=== PATIENT | female | born 1990 | race Hispanic/Latino ===

== ENCOUNTER 2018-08-20 18:51 | Emergency (ER) | payer SELFPAY ==
[2018-08-20 19:56] LABS: Absolute Lymphocytes (CBC) 4.4 K/uL (0.7-4.9); Absolute Monocytes 0.5 K/uL (0.1-1.3); Absolute Neutrophil 5.9 K/uL (1.8-8.0); Basophils % 0.7 % (0-1.3); Eosinophils % 2.6 % (0-4.4); Hematocrit 40.7 % (36.0-45.0); MPV 8.2 fL (7.6-11.3); Monocytes % 4.8 % (3.3-12.3); RBC Red Blood Cell Count 4.63 M/uL (3.86-4.86)
--- NOTE | 2018-08-20 20:10 | RAD REPORT ---
EXAM DESCRIPTION: RAD - Chest Single View - 08/20/2018 7:23 pm CLINICAL HISTORY: CHEST PAIN Chest pain. COMPARISON: No comparisons FINDINGS: Portable technique limits examination quality. The lungs are grossly clear. The heart is normal in size. No displaced fractures. IMPRESSION: No acute intrathoracic process suspected.
[2018-08-20 20:23] LABS: BUN Blood Urea Nitrogen 17 mg/dL (7-18); Bicarbonate 28 mmol/L (21-32); Glucose Level 101 mg/dL (74-106); Potassium 3.4 mmol/L (3.5-5.1); Sodium Level 141 mmol/L (136-145); Troponin (Emerg Dept Use Only) < 0.02 ng/mL (0.0-0.045)
[2018-08-20 20:53] LABS: Urine Blood NEGATIVE (NEG); Urine Glucose NEGATIVE (NEG); Urine Protein NEGATIVE (NEG); Urine Specific Gravity >1.030 (1.005-1.030); Urine pH 5.5 (5.0-7.0)
--- NOTE | 2018-08-20 22:07 | EDPHYS ---
Physician Documentation [facility] Name: Kaycee Griffni Age: 28 yrs Sex: Female : 1990 Arrival Date: 08/20/2018 Time: 18:52 Bed 7 Private MD: None, None ED Physician Michael Gr HPI: 08/20 21:43 This 28 yrs old Female presents to ER via Ambulatory with complaints of Chest pm1 Pain, Shortness Of Breath. 21:43 The patient or guardian reports chest pain that is located primarily in the mid-sternal pm1 area. The pain does not radiate. Associated signs and symptoms: Pertinent positives: shortness of breath, Pertinent negatives: abdominal pain, cough, dizziness, headache, nausea, palpitations, vomiting. The chest pain is described as sharp. Duration: The patient or guardian reports multiple episodes, that have now resolved. Modifying factors: The symptoms are alleviated by nothing. the symptoms are aggravated by nothing. Severity of pain: in the emergency department the pain is actually worse. The patient has not experienced similar symptoms in the past. The patient has not recently seen a physician. 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 - Social history:: Smoking status: Patient uses tobacco products, smokes one-half pack cigarettes per day. - Ebola Screening: : No symptoms or risks identified at this time. ROS: 21:46 Constitutional: Negative for fever, chills, and weight loss, Eyes: Negative for injury, pm1 pain, redness, and discharge, ENT: Negative for injury, pain, and discharge, Neck: Negative for injury, pain, and swelling. 21:46 Abdomen/GI: Negative for abdominal pain, nausea, vomiting, diarrhea, and constipation, Back: Negative for injury and pain, : Negative for injury, bleeding, discharge, and swelling, MS/Extremity: Negative for injury and deformity, Skin: Negative for injury, rash, and discoloration, Neuro: Negative for headache, weakness, numbness, tingling, and seizure. 21:46 Cardiovascular: Positive for chest pain, Negative for edema, orthopnea, palpitations. 21:46 Respiratory: Positive for shortness of breath, Negative for cough, dyspnea on exertion, sputum production, wheezing. Exam: 21:46 Constitutional: This is a well developed, well nourished patient who is awake, alert, pm1 and in no acute distress. Head/Face: Normocephalic, atraumatic. Eyes: Pupils equal round and reactive to light, extra-ocular motions intact. Lids and lashes normal. Conjunctiva and sclera are non-icteric and not injected. Cornea within normal limits. Periorbital areas with no swelling, redness, or edema. ENT: Nares patent. No nasal discharge, no septal abnormalities noted. Tympanic membranes are normal and external auditory canals are clear. Oropharynx with no redness, swelling, or masses, exudates, or evidence of obstruction, uvula midline. Mucous membranes moist. Neck: Trachea midline, no thyromegaly or masses palpated, and no cervical lymphadenopathy. Supple, full range of motion without nuchal rigidity, or vertebral point tenderness. No Meningismus. 21:46 Cardiovascular: Regular rate and rhythm with a normal S1 and S2. No gallops, murmurs, or rubs. Normal PMI, no JVD. No pulse deficits. Respiratory: Lungs have equal breath sounds bilaterally, clear to auscultation and percussion. No rales, rhonchi or wheezes noted. No increased work of breathing, no retractions or nasal flaring. Abdomen/GI: Soft, non-tender, with normal bowel sounds. No distension or tympany. No guarding or rebound. No evidence of tenderness throughout. Back: No spinal tenderness. No costovertebral tenderness. Full range of motion. Skin: Warm, dry with normal turgor. Normal color with no rashes, no lesions, and no evidence of cellulitis. MS/ Extremity: Pulses equal, no cyanosis. Neurovascular intact. Full, normal range of motion. 21:46 Chest/axilla: Inspection: normal, Palpation: crepitus, is not appreciated, tenderness, of the mid-sternal area, that totally reproduces the patient's complaints. 21:46 Neuro: Orientation: is normal, Motor: moves all fours, Gait: is steady, at a normal pace, without difficulty. Vital Signs: 19:02 BP 143 / 80; Pulse 105; Resp 16; Temp 98.2; Pulse Ox 99% ; Pain 5/10; hb 20:00 BP 129 / 83; Pulse 86; Resp 22; Pulse Ox 100% on R/A; lp1 21:00 BP 114 / 81; Pulse 92; Resp 18; Pulse Ox 100% on R/A; lp1 22:00 BP 129 / 74; Pulse 90; Resp 17; Pulse Ox 99% on R/A; Pain 0/10; lp1 MDM: 19:05 Patient medically screened. pm1 21:46 Data reviewed: vital signs. pm1 22:04 ED course: [facility] report: CT chest negative for PE, dissection. No acute intrathoracic pm1 abnormality. 22:04 Data interpreted: Pulse oximetry: on room air is 100 %. Interpretation: normal. pm1 Counseling: I had a detailed discussion with the patient and/or guardian regarding: the historical points, exam findings, and any diagnostic results supporting the discharge/admit diagnosis, lab results, radiology results, the need for outpatient follow up, to return to the emergency department if symptoms worsen or persist or if there are any questions or concerns that arise at home. 08/20 19:06 Order name: Basic Metabolic Panel; Complete Time: 21:01 pm1 08/20 19:06 Order name: CBC with Diff; Complete Time: 20:18 pm08/20 19:06 Order name: Magnesium; Complete Time: 21: pm1 08/20 19:06 Order name: Troponin (emerg Dept Use Only); Complete Time: 21:01 pm1 08/20 20:04 Order name: Urine Dipstick--Ancillary (enter results); Complete Time: 21:01 oe 08/20 20:05 Order name: Urine --Ancillary (enter results); Complete Time: 21:01 oe 08/20 19:06 Order name: XRAY Chest (1 view); Complete Time: 20:18 pm1 08/20 19:06 Order name: EKG; Complete Time: 19:07 pm08/20 19:06 Order name: Cardiac monitoring; Complete Time: 19:38 pm1 08/20 19:06 Order name: EKG - Nurse/Tech; Complete Time: 19:38 pm1 08/20 19:06 Order name: IV Saline Lock; Complete Time: 19:48 pm1 08/20 19:06 Order name: Labs collected and sent; Complete Time: 19:48 pm1 08/20 19:06 Order name: O2 Per Protocol; Complete Time: 19:49 pm1 08/20 21:05 Order name: CT Chest For PE Angio pm1 08/20 19:06 Order name: O2 Sat Monitoring; Complete Time: 19:49 pm1 08/20 19:06 Order name: Urine Dipstick-Ancillary (obtain specimen); Complete Time: 20:11 pm1 08/20 19:06 Order name: Urine Test (obtain specimen); Complete Time: 20:11 pm1 Administered Medications: No medications were administered Disposition: 08/20/18 22:06 Discharged to Home. Impression: Chest pain, unspecified. - Condition is Stable. - Discharge Instructions: Nonspecific Chest Pain. - Medication Reconciliation Form, Thank You Letter, Antibiotic Education, Prescription Opioid Use form. - Follow up: Emergency Department; When: As needed; Reason: Worsening of condition. Follow up: Private Physician; When: 2 - 3 days; Reason: Recheck today's complaints, Continuance of care, Re-evaluation by your physician. - Problem is new. - Symptoms have improved. Signatures: Dispatcher [employer] EDMS Kacey Borden RN RN lp1 Darvin Morris NP PROGRAM MANUFACTURING LEADER pm1 Ruth Mendoza RN RN Corrections: (The following items were deleted from the chart) 22:28 22:06 08/20/2018 22:06 Discharged to Home. Impression: Chest pain, unspecified. lp1 Condition is Stable. Forms are Medication Reconciliation Form, Thank You Letter, Antibiotic Education, Prescription Opioid Use. Follow up: Emergency Department; When: As needed; Reason: Worsening of condition. Follow up: Private Physician; When: 2 - 3 days; Reason: Recheck today's complaints, Continuance of care, Re-evaluation by your physician. Problem is new. Symptoms have improved. pm1
--- NOTE | 2018-08-20 22:07 | ER ---
Nurse's Notes [facility] Name: Kaycee Griffin Age: 28 yrs Sex: Female : 1990 Arrival Date: 08/20/2018 Time: 18:52 Bed 7 Private MD: None, None Diagnosis: Chest pain, unspecified Presentation: 08/20 19:00 Presenting complaint: SOB and intermittent sharp substernal chest pain that started 3 hb days ago. Denies fever/cough. Transition of care: patient was not received from another setting of care. Onset of symptoms was August 17, 2018. Risk Assessment: Do you want to hurt yourself or someone else? Patient reports no desire to harm self or others. Care prior to arrival: None. 19:00 Method Of Arrival: Ambulatory hb 19:00 Acuity: MALLORIE 3 hb 20:03 Initial Sepsis Screen: Does the patient meet any 2 criteria? No. Patient's initial lp1 sepsis screen is negative. Does the patient have a suspected source of infection? No. Patient's initial sepsis screen is negative. 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 - Social history:: Smoking status: Patient uses tobacco products, smokes one-half pack cigarettes per day. - Ebola Screening: : No symptoms or risks identified at this time. Screenin:02 Abuse screen: Denies threats or abuse. Denies injuries from another. Nutritional lp1 screening: No deficits noted. Tuberculosis screening: No symptoms or risk factors identified. Fall Risk None identified. Assessment: 19:45 General: Appears in no apparent distress. Behavior is appropriate for age. Pain: lp1 Complains of pain in chest Pain does not radiate. Pain began 2-3 days ago. Neuro: Level of Consciousness is awake, alert, obeys commands, Oriented to person, place, time, situation. Cardiovascular: Patient's skin is warm and dry. Respiratory: Reports shortness of breath during chest pain Airway is patent Respiratory effort is even, unlabored, Respiratory pattern is regular, Breath sounds are clear bilaterally. GI: No signs and/or symptoms were reported involving the gastrointestinal system. : No signs and/or symptoms were reported regarding the genitourinary system. EENT: No signs and/or symptoms were reported regarding the EENT system. Derm: Skin is pink, warm \T\ dry. Musculoskeletal: Circulation, motion, and sensation intact. 22:10 Reassessment: Patient and/or family updated on plan of care and expected duration. Pain lp1 level reassessed. Patient is alert, oriented x 3, equal unlabored respirations, skin warm/dry/pink. Patient denies pain at this time. Patient states feeling better. Patient states symptoms have improved. Vital Signs: 19:02 BP 143 / 80; Pulse 105; Resp 16; Temp 98.2; Pulse Ox 99% ; Pain 5/10; hb 20:00 BP 129 / 83; Pulse 86; Resp 22; Pulse Ox 100% on R/A; lp1 21:00 BP 114 / 81; Pulse 92; Resp 18; Pulse Ox 100% on R/A; lp1 22:00 BP 129 / 74; Pulse 90; Resp 17; Pulse Ox 99% on R/A; Pain 0/10; lp1 ED Course: 18:52 Patient arrived in ED. sb2 18:52 None, None is Private Physician. sb2 19:02 Triage completed. hb 19:02 Arm band placed on right wrist. hb 19:05 Darvin Morris NP is PHCP. pm1 19:05 Michael Gr MD is Attending Physician. pm1 19:20 X-ray completed. Portable x-ray completed in exam room. Patient tolerated procedure az well. 19:22 XRAY Chest (1 view) In Process Unspecified. EDMS 19:26 Kacey Borden, GUME is Primary Nurse. lp1 19:49 Inserted saline lock: 20 gauge in right antecubital area, using aseptic technique. oe Blood collected. 20:02 Patient has correct armband on for positive identification. Placed in gown. Bed in low lp1 position. Call light in reach. nuclear monitoring technician on. Pulse ox on. NIBP on. 20:03 Patient maintains SpO2 saturation greater than 95% on room air. lp1 21:[address] nj 21:43 CT Chest For PE Angio In Process Unspecified. EDMS 22:18 No provider procedures requiring assistance completed. IV discontinued, No lp1 redness/swelling at site. Pressure dressing applied. Administered Medications: No medications were administered Outcome: 22:06 Discharge ordered by . pm1 22:19 Discharged to home ambulatory, with significant other. lp1 22:19 Condition: good 22:19 Discharge instructions given to patient, Instructed on discharge instructions, follow up and referral plans. Demonstrated understanding of instructions, follow-up care. 22:20 Patient left the ED. lp1 Signatures: Dispatcher [employer] EDKacey Chandler RN RN lp1 Darvin Morris, SYSTEM SALES CONSULTANT SYSTEM SALES CONSULTANT pm1 Ruth Mendoza, GUME RN Nagi Valderrama Orlando oe Lynn Pfeiffer sbAnalia Verduzco Corrections: (The following items were deleted from the chart) 20:12 19:49 Inserted saline lock: 22 gauge in right antecubital area, using aseptic oe technique. Blood collected. oe 22:29 22:28 Patient left the ED. lp1 lp1
--- NOTE | 2018-08-21 09:50 | EKG ---
Test Date: 2018-08-20 Test Time: 19:32:41 Brim Cutter: MELLO MEASUREMENT RESULTS: Intervals: Rate: 93 MO: 134 QRSD: 74 QT: 350 QTc: 435 Ina: P: 26 MO: 134 QRS: 7 T: 39 INTERPRETIVE STATEMENTS: Normal sinus rhythm Normal ECG No previous ECG available for comparison Electronically Signed On 08-21-18 08:34:42 MIX HOUSE OPERATOR by Duane Thomas
--- NOTE | 2018-08-21 11:34 | RAD REPORT ---
EXAM DESCRIPTION: CT - Chest For Pe Angio CLINICAL HISTORY: 28 years Female Chest pain; SOB COMPARISON: None. TECHNIQUE: Images were obtained in axial, coronal, and oblique projections. Intravenous contrast was administered. This exam was performed according to our departmental dose-optimization program, which includes autom ated exposure control, adjustment of the mA and/or kV according to patient size and/or less of iterat nupur reconstruction technique. FINDINGS: No filling defects pulmonary arteries bilaterally. No aortic dissection or dilatation. No pericardial or pleural effusions bilaterally. No adenopathy. No pneumothorax. No lung parenchymal infiltrates or nodules seen. Fatty change involving the liver. No acute osseous abnormality. IMPRESSION: No evidence for pulmonary embolus. No aortic dissection. No acute intrathoracic abnormality. Electronically signed by Britany Allen MD 08/20/2018 9:51 PM BOBCAT OPERATOR Due to temporary technical issues with the PACS/Fluency reporting system, reports are being signed by the in house radiologist as a courtesy to ensure prompt reporting. The interpreting radiologist is f ully responsible for the content of the report.
== END 2018-08-20 22:28 | disposition home or self-care (01) ==
LOC: ER 18:51
DX: R07.9 Chest pain, unspecified (principal); F17.210 Nicotine dependence, cigarettes, uncomplicated
CPT/HCPCS: 36415; 71045; 71275; 80048; 81003; 81025; 83735; 84484; 85025; 93005; 99285; Q9967